=== PATIENT | male | born 1965 | race Caucasian/White ===

== ENCOUNTER 2018-12-10 15:43 | Inpatient (IN) | payer OTHER ==
[~2018-12-10] VITALS: Ht 185.4 cm; Wt 103.4 kg
[2018-12-10 15:47] VITALS: BP_SYST 148
--- NOTE | 2018-12-10 15:53 | NUR ---
Patient to ER bed 4 to gown for evaluation. Side rails up. Report given to YARI Ramos.
--- NOTE | 2018-12-10 16:05 | NUR ---
Patient came in to ED with left toe (4th digit) infection. Toe is red, broken skin and swollen. Patient cut toe nails and stated "must have cut toe nail too far." Patient did not seek treatment for toe. Patient states work boots might be too tight. patient also c/o calf pain. Will continue to monitor.
[2018-12-10] MEDS ORDERED: PIPERACILLIN/TAZO 3.375 GM in NS 50 ML IV ONE (16:15)
[2018-12-10] MEDS ORDERED: NACL 0.9% 1,000 ML IV ONE (16:15)
[2018-12-10] MEDS ORDERED: VANCOMYCIN HCL 1,000 MG in NS 250 ML IV ONE (16:15)
[2018-12-10] MEDS ORDERED: VANCOMYCIN HCL 1000 MG/VIAL IV ONE ×2 (16:40→22:27)
[2018-12-10] MEDS ORDERED: PIPERACILLIN/TAZOBACTAM 3.375 GM/VIAL (ZOSYN) IV ONE ×2 (16:40→22:28)
[2018-12-10 16:54] LABS: BASOPHILS % (AUTO) 0.3 % (0.0-2.0); EOSINOPHILS % (AUTO) 0.2 % (0.0-4.0); HEMATOCRIT 37.2 % (36-54); HEMOGLOBIN 12.8 g/dL (14.0-18.0); LYMPHOCYTES % (AUTO) 8.4 % (20.5-51.5); MEAN CORPUSCULAR HEMOGLOBIN 29 pg (27-31); MEAN CORPUSCULAR HGB CONC 34 % (32-36); MEAN CORPUSCULAR VOLUME 84 fL (79.0-98.0); MONOCYTES # (AUTO) 0.8 K/uL (0.0-1.0); MONOCYTES % (AUTO) 6.8 % (1.7-9.3); NEUTROPHILS # (AUTO) 10.4 K/uL (1.8-7.7); NEUTROPHILS % (AUTO) 84.3 % (40.0-70.0); PLATELET COUNT (AUTO) 221 K/uL (130-430); RED BLOOD CELL COUNT(AUTO) 4.42 MIL/uL (4.2-6.2); RED CELL DISTRIBUTION WIDTH 13.9 % (9.0-15.0); WHITE BLOOD COUNT (AUTO) 12.3 K/uL (4.8-10.8)
[2018-12-10 16:59] LABS: INR 1.1 (0.80-1.20); PROTHROMBIN TIME 10.7 SECS (9.5-12.5)
[2018-12-10 17:01] LABS: ALBUMIN 3.1 g/dL (3.4-4.8); CREATININE 1.03 mg/dL (0.55-1.30); POTASSIUM 3.8 mmol/L (3.5-5.1); TOTAL BILIRUBIN 0.5 mg/dL (0.0-1.0)
[2018-12-10 17:36] LABS: C-REACTIVE PROTEIN QUANT 15.9 mg/dL (0-0.5)
[2018-12-10] MEDS ORDERED: CHOL500013 PO (18:01)
[2018-12-10] MEDS ORDERED: GLU500 PO (18:01)
[2018-12-10] MEDS ORDERED: IRON-14 PO (18:01)
[2018-12-10] MEDS ORDERED: VITA1CAP PO (18:01)
[2018-12-10] MEDS ORDERED: EMPA10TA PO (18:01)
--- NOTE | 2018-12-10 18:01 | NUR ---
Medication reconciliation completed with information provided by patient. Any prior medication reconciliation on file was reviewed and corrected.
--- NOTE | 2018-12-10 18:23 | NUR ---
Patient will be admitted to care of Dr. Saldana. Admitted to medsurg unit. Room to be assigned by YARI Clement. Belongings list completed. Summary report printed. Report will be given at bedside.
[2018-12-10 18:53] LABS: ERYTHROCYTE SEDIMENTATION RATE 79 MM/HR (0-15)
--- NOTE | 2018-12-10 19:41 | NUR ---
Patient will be admitted to care of Dr. Saldana. Admitted to med/surg unit. Will go to room 122A. Belongings list completed. Summary report printed. Report will be given at bedside.
--- NOTE | 2018-12-10 19:42 | NUR ---
patient stable, report called and given to YARI Jackson. All questions answered.
[2018-12-10 19:44] LABS: BILIRUBIN,URINE NEGATIVE (NEGATIVE); BLOOD, URINE NEGATIVE (NEGATIVE); CLARITY/URINE CLEAR (CLEAR); COLOR,URINE YELLOW (YELLOW); GLUCOSE,URINE 3+ (NEGATIVE); KETONES,URINE 2+ (NEGATIVE); LEUKOCYTE ESTERASE ,URINE NEGATIVE (NEGATIVE); NITRITE, URINE NEGATIVE (NEGATIVE); PH,URINE 5.5 (5.0-8.0); PROTEIN URINE TRACE (NEGATIVE)
[2018-12-10] MEDS ORDERED: ONDANSETRON HCL 4 MG/2 ML VIAL IVP PRN (19:45)
[2018-12-10] MEDS ORDERED: ACETAMINOPHEN 325 MG TABLET PO PRN (19:45)
[2018-12-10] MEDS ORDERED: DEXTROSE 50% JECT 50 ML DISP.SYRIN IVP PRN (19:45)
[2018-12-10 19:52] LABS: RBC,URINE 0-3 /HPF (0-3); WBC,URINE 0-3 /HPF (0-3)
[2018-12-10 19:53] LABS: BACTERIA,URINE FEW /HPF (None Seen); MUCUS,URINE None Seen /LPF (None Seen)
[2018-12-10 19:56] VITALS: BP_SYST 122
--- NOTE | 2018-12-10 19:56 | NUR ---
ADMIT NOTE Received pt from ER to the floor with a diagnosis of INFECTED DIABETIC FOOT. Admission process initiated. patient oriented to pain management, safety and call light-teach back done.
--- NOTE | 2018-12-10 20:00 | NUR ---
INITIAL NOTES/DR. ARBOLEDA ROUND AT INITIAL ASSESSMENT, PATIENT IS TALKING WITH HIS SISTER AND DOCTOR NKECHI IS AT BED SIDE AT THIS TIME. NO SIGNS OR SYMPTOMS OF DISTRESS NOTED. PATIENT IS STABLE AND VERBALIZES NO PAIN. PLAN OF CARE WAS DISCUSSED WITH PATIENT AND FAMILY. PATIENT DEMONSTRATES CORRECT USAGE OF CALL LIGHT AT THIS TIME. BED IS LOCKED, ALARMED, AND AT LOWEST POSITION. FALL AND SAFETY PRECAUTION IS IN PLACE AND WILL CONTINUE THROUGHOUT THE SHIFT. WILL CONTINUE TO MONITOR.
[2018-12-10 20:34] LABS: PHOSPHORUS 3.3 mg/dL (2.7-4.5)
[2018-12-10 20:50] LABS: CALCIUM 8.2 mg/dL (8.4-11.0)
[2018-12-10] MEDS: HEPARIN SODIUM,PORCINE 5000 UNITS/ML VIAL SUBCUT SCH (21:00)
[2018-12-10] MEDS: DOCUSATE SODIUM 100 MG CAPSULE PO SCH (21:07)
[2018-12-10 21:08] LABS: THYROID STIMULATING HORMONE 0.65 uIu/mL (0.34-4.82)
[2018-12-10] MEDS: NACL 0.9% 1,000 ML IV SCH (21:08)
[2018-12-10] MEDS: INSULIN REGULAR, HUMAN 100 UNITS/ML, 10 ML VIAL (humuLIN R) SUBCUT PRN (21:17)
[2018-12-10] MEDS ORDERED: MORPHINE 2 MG/ML INJ. SYRINGE IVP PRN (22:00)
--- NOTE | 2018-12-10 22:00 | NUR ---
ROUNDING PATIENT IS LOOKING AT HIS PHONE. NO SIGNS OR SYMPTOMS OF RESPIRATORY DISTRESS. CALL LIGHT IS WITHIN REACH. BED IS LOCKED, ALARMED, AND AT THE LOWEST LEVEL. WILL CONTINUE TO MONITOR.
[2018-12-10] MEDS: PIPERACILLIN/TAZO 3.375 GM in NS 50 ML IV SCH (23:01)
[2018-12-11] MEDS ORDERED: PIPERACILLIN/TAZO 3.375/DEX-IS 50 ML IV SCH
--- NOTE | 2018-12-11 | NUR ---
ROUNDING PATIENT IS RESTING. PATIENT IS STABLE AND SHOWS NO SIGNS OR SYMPTOMS OF RESPIRATORY DISTRESS. CALL LIGHT IS WITHIN REACH. BED IS LOCKED, ALARMED, AND AT THE LOWEST LEVEL. WILL CONTINUE MONITOR.
--- NOTE | 2018-12-11 | NUR ---
NPO STATUS PATIENT IS NOW ON NPO STATUS. PATIENT IS AWARE OF NPO STATUS AND VERBALIZES UNDERSTANDING. NPO CONE PLACED AT BEDSIDE FOR REMINDER.
--- NOTE | 2018-12-11 02:00 | NUR ---
IV INSERTION PATIENT IV IS NOTED TO BE INFILTRATED. IV IS D/C, TIP INTACT, NO SIGNS OF ACTIVE BLEED. NEW IV IS PLACED ON RIGHT FOREARM #22 GAUGE, 10ML NS FLUSHED WITH NO RESISTANCE. PATIENT TOLERATED WELL. IV FLUIDS CONNECTED AT THIS TIME PER MD ORDER. PATIENT IS RESTING IN BED AND STABLE. NO SIGNS OR SYMPTOMS OF RESPIRATORY DISTRESS. CALL LIGHT IS WITHIN REACH. BED IS LOCKED, ALARMED, AND AT THE LOWEST LEVEL. WILL CONTINUE TO MONITOR.
--- NOTE | 2018-12-11 04:00 | NUR ---
ROUNDING PATIENT IS SLEEPING. NO SIGNS OR SYMPTOMS OF DISTRESS NOTED. CALL LIGHT IS WITHIN REACH. BED IS LOCKED, ALARMED, AND AT THE LOWEST LEVEL. WILL CONTINUE TO MONITOR.
[2018-12-11] MEDS ORDERED: VANCOMYCIN HCL 1 GM/NS PREMIX 250 ML IV SCH (05:00)
[2018-12-11] MEDS: PIPERACILLIN/TAZO 3.375 GM in NS 50 ML IV SCH ×3 (05:16→17:55)
[2018-12-11 05:21] LABS: BILIRUBIN,URINE NEGATIVE (NEGATIVE); BLOOD, URINE NEGATIVE (NEGATIVE); CLARITY/URINE CLEAR (CLEAR); COLOR,URINE YELLOW (YELLOW); GLUCOSE,URINE 3+ (NEGATIVE); KETONES,URINE 1+ (NEGATIVE); LEUKOCYTE ESTERASE ,URINE NEGATIVE (NEGATIVE); NITRITE, URINE NEGATIVE (NEGATIVE); PH,URINE 5.5 (5.0-8.0); PROTEIN URINE TRACE (NEGATIVE)
[2018-12-11 05:24] LABS: BACTERIA,URINE FEW /HPF (None Seen); RBC,URINE 0-3 /HPF (0-3); WBC,URINE 0-3 /HPF (0-3)
--- NOTE | 2018-12-11 05:28 | NUR ---
CONSULTATION PAGED REASON FOR CONSULTATION: R/O OSTEOMYELITIS WAS CONSULT CALLED? YES PERSON WHO WAS NOTIFIED: LOREN CONSULTING PHYSICIAN: DR. GÓMEZ TUB TENDER SPECIALTY: ORTHO TUB TENDER PHONE NUMBER: [phone] ORDERING PHYSICIAN: DR. ARBOLEDA Addendum: 12/11/18 at 0547 by Linda Martinez [place]/ CONSULT WAS ENTERED FOR DR. DALIA LITTLE DATA ARCHITECT MANAGER FOR DR. GÓMEZ TUB TENDER PHONE NUMBER: [phone]
[2018-12-11 05:41] LABS: BARBITURATE, URINE NEGATIVE (NEG <=200); BENZODIAZEPINE, URINE NEGATIVE (NEG <=150); CANNABINOID, URINE NEGATIVE (NEG <=50); COCAINE, URINE NEGATIVE (NEG <=150); METHAMPHETAMINES SCREEN,URINE NEGATIVE (NEG <=500); OPIATE, URINE NEGATIVE (NEG <=100); PHENCYCLIDINE SCREEN,URINE NEGATIVE (NEG <=25); UR TRICYCLIC ANTIDEPRESSANTS NEGATIVE (NEG <=300); URINE AMPHETAMINE NEGATIVE (NEG <=500); URINE METHADONE NEGATIVE (NEG <=200); URINE OXYCODONE SCREEN NEGATIVE (NEG <=100); URINE PROPOXYPHENE SCREEN NEGATIVE (NEG <=300)
--- NOTE | 2018-12-11 06:00 | NUR ---
CLOSING NOTES PATIENT HAS BEEN NPO FROM MIDNIGHT. BLOOD SUGAR CHECK WAS DONE AT THIS TIME AND IS WNL. AT THIS TIME, PT IS RESTING IN BED AND IS STABLE. NO SIGNS OR SYMPTOMS OF RESPIRATORY DISTRESS. CALL LIGHT IS WITHIN REACH. BED IS LOCKED, ALARMED, AND AT THE LOWEST LEVEL. FALL AND SAFETY PRECAUTIONS HAVE BEEN IN PLACE THROUGHOUT THE SHIFT. WILL CONTINUE TO MONITOR UNTIL BEDSIDE REPORT IS GIVEN TO AM NURSE.
[2018-12-11] MEDS: HYDROcodone/ACETAMIN 5-325 MG TAB (NORCO/ VICODIN) PO PRN ×2 (06:14→21:28)
[2018-12-11] MEDS: metFORMIN HCL 500 MG TABLET PO SCH ×3 (08:00→17:55)
--- NOTE | 2018-12-11 08:00 | NUR ---
PATIENT IS SLEEPING, AROUSABLE A/OX4. POC IS REVIEWED. CALL LIGHT IN PLACE, BED LOCKED AT THE LOWEST POSITION, WILL CONTINUE TO MONITOR.
[2018-12-11 08:10] LABS: BASOPHILS # (AUTO) 0.1 K/uL (0.0-0.2); BASOPHILS % (AUTO) 0.6 % (0.0-2.0); EOSINOPHILS # (AUTO) 0.1 K/uL (0.0-0.4); EOSINOPHILS % (AUTO) 1.1 % (0.0-4.0); HEMATOCRIT 33.7 % (36-54); HEMOGLOBIN 11.5 g/dL (14.0-18.0); LYMPHOCYTES # (AUTO) 1.4 K/uL (1.0-5.5); LYMPHOCYTES % (AUTO) 16.7 % (20.5-51.5); MEAN CORPUSCULAR HEMOGLOBIN 29 pg (27-31); MEAN CORPUSCULAR HGB CONC 34 % (32-36); MEAN CORPUSCULAR VOLUME 84 fL (79.0-98.0); MONOCYTES # (AUTO) 0.7 K/uL (0.0-1.0); MONOCYTES % (AUTO) 8.5 % (1.7-9.3); NEUTROPHILS # (AUTO) 6.3 K/uL (1.8-7.7); NEUTROPHILS % (AUTO) 73.1 % (40.0-70.0); PLATELET COUNT (AUTO) 197 K/uL (130-430)
[2018-12-11 08:20] LABS: WHITE BLOOD COUNT (AUTO) 8.6 K/uL (4.8-10.8)
[2018-12-11 08:33] LABS: CREATININE 0.97 mg/dL (0.55-1.30); POTASSIUM 3.8 mmol/L (3.5-5.1)
[2018-12-11] MEDS: HEPARIN SODIUM,PORCINE 5000 UNITS/ML VIAL SUBCUT SCH ×2 (09:00→20:24)
[2018-12-11] MEDS: DOCUSATE SODIUM 100 MG CAPSULE PO SCH ×3 (09:00→20:23)
--- NOTE | 2018-12-11 09:08 | NUR ---
DR. LITTLE IS AT BEDSIDE. POC IS EXPLAINED TO PATIENT
[2018-12-11 09:17] LABS: CALCIUM 8.5 mg/dL (8.4-11.0)
--- NOTE | 2018-12-11 10:33 | NUR ---
Nutrition Update Joaquin Scale 18 noted. Pt admitted for infected DM foot ulcer. Diet: [facility] BMI: 30.1 kg/m2 RD to follow per nutrition care standards.
--- NOTE | 2018-12-11 11:30 | NUR ---
BLOOD SUGAR 93. NO COVERAGE NEEDED.
[2018-12-11 12:30] VITALS: BP_SYST 151
--- NOTE | 2018-12-11 13:58 | NUR ---
PATIENT IS RECEIVING ULTRASOUND AT THE MOMENT.
[2018-12-11] MEDS: VANCOMYCIN HCL 1,500 MG in NS 250 ML IV SCH (14:13)
[2018-12-11] MEDS: NACL 0.9% 1,000 ML IV SCH (14:13)
--- NOTE | 2018-12-11 15:19 | NUR ---
patient is resting, with family at bedside.
[2018-12-11 16:30] VITALS: BP_SYST 142
--- NOTE | 2018-12-11 17:08 | NUR ---
BLOOD SUGAR 96. NO COVERAGE NEEDED.
--- NOTE | 2018-12-11 18:13 | NUR ---
PATIENT IS EATING DINNER AT THIS TIME. NO SIGNS OF DISTRESS NOTED.
--- NOTE | 2018-12-11 19:45 | NUR ---
INITIAL NOTES AT INITIAL ASSESSMENT, PATIENT IS AWAKE AND WATCHING TV. NO SIGNS OR SYMPTOMS OF DISTRESS NOTED. PATIENT IS STABLE AND VERBALIZES NO PAIN. PLAN OF CARE WAS DISCUSSED WITH PATIENT AND FAMILY. PATIENT DEMONSTRATES CORRECT USAGE OF CALL LIGHT AT THIS TIME. BED IS LOCKED, ALARMED, AND AT LOWEST POSITION. FALL AND SAFETY PRECAUTION IS IN PLACE AND WILL CONTINUE THROUGHOUT THE SHIFT. WILL CONTINUE TO MONITOR.
[2018-12-11 20:00] VITALS: BP_SYST 137
--- NOTE | 2018-12-11 21:45 | NUR ---
WOUND CARE WOUND CARE PERFORMED AT THIS TIME. PATIENT PREMEDICATED FOR WOUND CARE. PATIENT TOLERATED WELL AND REPOSITION FOR COMFORT. PATIENT IS RESTING IN BED AND STABLE. NO SIGNS OR SYMPTOMS OF DISTRESS. CALL LIGHT IS WITHIN REACH. BED IS LOCKED, ALARMED, AND AT THE LOWEST LEVEL. WILL CONTINUE TO MONITOR.
[2018-12-12 00:05] VITALS: BP_SYST 127
[2018-12-12] MEDS: PIPERACILLIN/TAZO 3.375 GM in NS 50 ML IV SCH ×5 (00:29→23:52)
[2018-12-12] MEDS: VANCOMYCIN HCL 1,500 MG in NS 250 ML IV SCH ×2 (05:34→15:12)
[2018-12-12] MEDS: NACL 0.9% 1,000 ML IV SCH ×2 (05:34→22:01)
[2018-12-12 06:10] LABS: CREATININE 1.12 mg/dL (0.55-1.30); POTASSIUM 4.3 mmol/L (3.5-5.1)
--- NOTE | 2018-12-12 06:25 | NUR ---
CLOSING NOTES PATIENT WAS COOPERATIVE THROUGHOUT THE SHIFT. BLOOD SUGAR CHECK WNL. PATIENT IS CURRENTLY SLEEPING IN BED AND IS STABLE. NO SIGNS OR SYMPTOMS OF RESPIRATORY DISTRESS. CALL LIGHT IS WITHIN REACH. BED IS LOCKED, ALARMED, AND AT THE LOWEST LEVEL. FALL AND SAFETY PRECAUTIONS HAVE BEEN IN PLACE THROUGHOUT THE SHIFT. WILL CONTINUE TO MONITOR UNTIL BEDSIDE REPORT IS GIVEN TO AM NURSE.
[2018-12-12 06:28] LABS: BASOPHILS % (AUTO) 0.7 % (0.0-2.0); EOSINOPHILS # (AUTO) 0.2 K/uL (0.0-0.4); EOSINOPHILS % (AUTO) 2.9 % (0.0-4.0); HEMATOCRIT 34.7 % (36-54); HEMOGLOBIN 11.7 g/dL (14.0-18.0); LYMPHOCYTES # (AUTO) 1.6 K/uL (1.0-5.5); MEAN CORPUSCULAR HEMOGLOBIN 29 pg (27-31); MEAN CORPUSCULAR HGB CONC 34 % (32-36); MEAN CORPUSCULAR VOLUME 85 fL (79.0-98.0); MONOCYTES # (AUTO) 0.8 K/uL (0.0-1.0); MONOCYTES % (AUTO) 10.1 % (1.7-9.3); NEUTROPHILS # (AUTO) 4.9 K/uL (1.8-7.7); NEUTROPHILS % (AUTO) 65.3 % (40.0-70.0); PLATELET COUNT (AUTO) 215 K/uL (130-430); RED BLOOD CELL COUNT(AUTO) 4.07 MIL/uL (4.2-6.2); RED CELL DISTRIBUTION WIDTH 13.7 % (9.0-15.0); WHITE BLOOD COUNT (AUTO) 7.5 K/uL (4.8-10.8)
[2018-12-12 06:31] LABS: CALCIUM 8.8 mg/dL (8.4-11.0)
--- NOTE | 2018-12-12 07:30 | NUR ---
OPENING NOTE RECEIVED PATIENT IN BED. ALERT AND ORIENTED. DENIES PAIN AT THIS TIME. ROOM AIR. NO ACUTE DISTRESS. NO SOB. RESPIRATION EVEN AND UNLABORED. SKIN WARM AND DRY TO TOUCH. IV INTACT AND PATENT; HECTOR IVF. ASSISTED PATIENT TO BATHROOM; STEADY GAIT NOTED. SEEN AND EXAMINED BY AT BEDSIDE; DISCUSSED PLAN OF CARE AND PATIENT VERBALIZED UNDERSTANDING. BED IN LOW AND LOCKED POSITION. SIDERAIL UPX 2. ALL NEEDS MET. CALL LIGHT IN REACH. CONT TO MONITOR.
[2018-12-12 08:04] VITALS: BP_SYST 125
--- NOTE | 2018-12-12 08:24 | NUR ---
CONSULTATION PAGED REASON FOR CONSULTATION:LEFT FOOT POSS OSTEOMYELITIS WAS CONSULT CALLED?Y PERSON WHO WAS NOTIFIED:ROSETTA CONSULTING PHYSICIAN:TEJA KEARNS BUSINESS DEVELOPMENT MANAGER SPECIALTY:INFECTIIOUS DISEASE BUSINESS DEVELOPMENT MANAGER PHONE NUMBER:[phone] REQUESTING PHYSICIAN:TABITHA BARTH
[2018-12-12] MEDS: DOCUSATE SODIUM 100 MG CAPSULE PO SCH ×2 (08:28→21:50)
[2018-12-12] MEDS: metFORMIN HCL 500 MG TABLET PO SCH ×2 (08:29→17:27)
[2018-12-12] MEDS: HEPARIN SODIUM,PORCINE 5000 UNITS/ML VIAL SUBCUT SCH ×3 (08:29→21:00)
--- NOTE | 2018-12-12 08:33 | NUR ---
meds DUE MEDS ADMINISTERED, HECTOR WELL. PATIENT REFUSED HEPARIN DUE TO "FATHER WAS ON IT AND HE WOULD BLEED"; RISK/BENEFITS EXPLAINED AND PATIENT CONT TO REFUSE. WILL NOTIFY MD. VÁZQUEZ TO MONITOR
--- NOTE | 2018-12-12 11:32 | NUR ---
SEEN AND EXAMINED BY AT BEDSIDE WOUND CARE PROVIDED, HECTOR WELL. DENIES ANY PAIN. PICTURES OF WOUND TAKEN.
--- NOTE | 2018-12-12 11:56 | NUR ---
BLOOD GLUCOSE 152 mg/dL AT THIS TIME. PATIENT REFUSED INSULIN COVERAGE STATING HE DOESNT NEED IT. TEACHING DONE ON DM AND RISKS EXPLAINED. PT CONT TO REFUSE.
[2018-12-12 12:13] VITALS: BP_SYST 137
--- NOTE | 2018-12-12 12:16 | NUR ---
PATIENT TAKEN TO MRI VIA WHEELCHAIR. PATIENT STABLE.
--- NOTE | 2018-12-12 13:36 | NUR ---
PATIENT ON UNIT FROM MRI; STABLE. SITTING UP EATING LUNCH.
[2018-12-12] MEDS: FLUCONAZOLE 200 mg/ NS 100 ML IV SCH (13:56)
--- NOTE | 2018-12-12 15:21 | NUR ---
NOTE PATIENT STABLE. HECTOR IV ATB ORDERED. NO S/SX ASE NOTED. SITTING UP IN BED TALKING TO MOTHER AND SISTERS. ALL NEEDS MET. CONT TO MONITOR
[2018-12-12 16:03] VITALS: BP_SYST 126
--- NOTE | 2018-12-12 17:40 | NUR ---
BLOOD GLUCOSE 142 mg/dL. NO INSULIN COVERAGE NEEDED. CONT TO MONITOR.
--- NOTE | 2018-12-12 19:00 | NUR ---
CLOSING NOTE PATIENT STABLE. SITTING UP TALKING TO FAMILY. DENIES PAIN. NO ACUTE DISTRESS. NO SOB. RESPIRATION EVEN AND UNLABORED. SKIN WARM AND DRY TO TOUCH. IV INTACT AND PATENT; HECTOR IVF. BED IN LOW AND LOCKED POSITION. SIDERAIL UPX2. ALL NEEDS MET. CALL LIGHT IN REACH. CONT TO MONITOR
--- NOTE | 2018-12-12 19:20 | NUR ---
initial notes: pt is in bed,awake, alert,oriented x 4.talking to his family at bedside. no pain, no distress. ivf is infusing well to right arm . no infiltration. pt has wound to his left 4th toe- dry drainage seen on the dressing, reinforce dressing. no skin breakdown at the back. vital sign check and recorded. pt is ambulatory with steady gait. side rails up. low bed position. will follow-up..
[2018-12-12 19:56] VITALS: BP_SYST 128
[2018-12-12] MEDS: INSULIN REGULAR, HUMAN 100 UNITS/ML, 10 ML VIAL (humuLIN R) SUBCUT PRN (21:53)
--- NOTE | 2018-12-12 22:05 | NUR ---
awake, watching tv. no pain. stable. needs attended. will recheck.
--- NOTE | 2018-12-13 | NUR ---
sleeping on his side. stable. non labored breathing, call light in reach. will recheck pt.
--- NOTE | 2018-12-13 02:00 | NUR ---
sleeping,comfortable, stable. non labored breathing. not distress. will recheck pt.
[2018-12-13] MEDS: VANCOMYCIN HCL 1,500 MG in NS 250 ML IV SCH ×2 (02:46→13:52)
--- NOTE | 2018-12-13 04:00 | NUR ---
sleeping,comfortable on his side, stable. non labored breathing. not distress. ivf infusing well. will recheck pt.
[2018-12-13] MEDS: PIPERACILLIN/TAZO 3.375 GM in NS 50 ML IV SCH ×2 (05:53→11:20)
--- NOTE | 2018-12-13 06:12 | NUR ---
sleeping,comfortable, stable. non labored breathing. not distress. iv antibiotic given. will blood sugar.
--- NOTE | 2018-12-13 07:20 | NUR ---
closing: pt is awake, alert, no pain. stable. ivf infusing well. ambulatory with steady gait. needs attended the whole shift. beside report given to am rn.
--- NOTE | 2018-12-13 07:25 | NUR ---
Initial notes: Patient awake, alert and oriented. Stable. I.V. access patent. Discussed plan of care. Call light within reach. Report received at bedside.
[2018-12-13 08:07] VITALS: BP_SYST 130
--- NOTE | 2018-12-13 08:24 | NUR ---
Corey rounds: Seen by Dr. Flannery. Talked to the patient. Changed the toe dressing.
[2018-12-13] MEDS: DOCUSATE SODIUM 100 MG CAPSULE PO SCH ×2 (08:50→21:20)
[2018-12-13] MEDS: metFORMIN HCL 500 MG TABLET PO SCH ×2 (08:50→17:03)
[2018-12-13] MEDS: HEPARIN SODIUM,PORCINE 5000 UNITS/ML VIAL SUBCUT SCH ×2 (08:50→21:22)
[2018-12-13 11:42] VITALS: BP_SYST 126
--- NOTE | 2018-12-13 11:45 | NUR ---
Wound Evaluation: Late note for 1145 secondary to patient care. Wound evaluation attempted, but dressing was changed by Dr. Flannery this morning. Dressing not removed for assessment secondary to doing so would decrease wound temperature and retard wound healing rate. Will follow up on orders.
[2018-12-13] MEDS: FLUCONAZOLE 200 mg/ NS 100 ML IV SCH (12:24)
[2018-12-13 12:46] VITALS: BP_SYST 129
--- NOTE | 2018-12-13 13:34 | NUR ---
rounds: Patient resting on bed. no distress noted.
--- NOTE | 2018-12-13 15:17 | NUR ---
rounds: Patient on bed resting. no distress noted.
--- NOTE | 2018-12-13 16:04 | NUR ---
Dietitian Recommendations * Recommend [facility] high carb-75 gm diet with Dorian BID. (provides additional 180 kcal and 5 gm of protein/day) * Recommend snacks TID. RADHA, RD Please refer to Nutrition Assessment for details. Signed: 12/13/18 at 1605 by Liz ROMO <Co-Signature Required> Co-Signed: 12/13/18 at [address] Addendum: 12/13/18 at 1605 by Liz ROMO Amended: Links added.
[2018-12-13 16:07] VITALS: BP_SYST 138
--- NOTE | 2018-12-13 18:44 | NUR ---
Closing notes: Patient resting on bed. Stable. Needs attended. Call light within reach. Safety measures in placed. Report will be given to material handler 2nd shift.
[2018-12-13 20:00] VITALS: BP_SYST 140
[2018-12-13] MEDS: ceFAZolin SODIUM 1 GM in D5W 50 ML IV SCH (21:24)
[2018-12-13] MEDS: INSULIN REGULAR, HUMAN 100 UNITS/ML, 10 ML VIAL (humuLIN R) SUBCUT PRN (21:26)
[2018-12-13] MEDS: NACL 0.9% 1,000 ML IV SCH (23:44)
[2018-12-14 04:00] VITALS: BP_SYST 155
--- NOTE | 2018-12-14 04:49 | NUR ---
patient is askeep and vital signs not taken.prefers tp sleep.withr
[2018-12-14] MEDS: ceFAZolin SODIUM 1 GM in D5W 50 ML IV SCH ×3 (05:22→21:42)
[2018-12-14] MEDS: INSULIN REGULAR, HUMAN 100 UNITS/ML, 10 ML VIAL (humuLIN R) SUBCUT PRN (06:59)
--- NOTE | 2018-12-14 08:00 | NUR ---
ASSUMPTION OF CARE: RECEIVED PT A/A/OX4, DX: RISK FOR INEFFECTIVE THERAPEUTIC REGIMEN, R/T INFECTED DIABETIC FOOT ULCER. PT IS STABLE, AFEBRILE, NO C/O PAIN OR DISCOMFORT, LEFT FOOT ELEVATED ON PILLOW, DRSG IS CLEAN, DRY AND INTACT, VSS, ORIENTED TO UNIT, CALL LIGHT PLACED WITHIN REACH, IV SITE INTACT, PATENT, NO REDNESS OR SWELLING, RESTING IN POSITION OF COMFORT, NEEDS MET, WILL CONT' TO MONITOR AND ASSESS.
--- NOTE | 2018-12-14 08:15 | NUR ---
PAGED OAGED MAICO JUAREZ AT [phone] SPOKE WITH MEGHAN.
--- NOTE | 2018-12-14 08:15 | NUR ---
VISIT: AT BEDSIDE FOR ASSESSMENT OF PT, DISCUSSED JOANA GUTIERREZ TO LEFT SECOND TOE CHANGED, PT DENIES HAVING ANY PAIN, TOLERATING WELL, WILL CONT' TO MONITOR AND ASSESS. Addendum: 12/14/18 at 0839 by Effie Fragoso RN ERROR: LEFT FORTH TOE EXAMINED BY JOANA ESPINOSA CHANGED AT THIS TIME.
[2018-12-14] MEDS: HEPARIN SODIUM,PORCINE 5000 UNITS/ML VIAL SUBCUT SCH ×2 (09:00→21:00)
[2018-12-14 09:14] LABS: PROTHROMBIN TIME 10.4 SECS (9.5-12.5)
[2018-12-14] MEDS: DOCUSATE SODIUM 100 MG CAPSULE PO SCH ×2 (09:54→21:42)
[2018-12-14] MEDS: metFORMIN HCL 500 MG TABLET PO SCH ×2 (09:55→17:29)
--- NOTE | 2018-12-14 12:00 | NUR ---
GLUCOSE MONITORING: BLOOD SUGAR HAXFC=022, NO COVERAGE REQUIRED, WILL CONT' WITH POC.
--- NOTE | 2018-12-14 12:15 | NUR ---
PICC LINE INSERTION: IV PICC LINE BEING INSERTED BY PICC LINE NURSE USING STERILE TECHNIQUE, PICC LINE NURSE CLARITA RN AT BEDSIDE, PT TOLERATING WELL, WILL CONT' TO MONITOR AND ASSESS.
[2018-12-14] MEDS ORDERED: CEFA1FRO IV (12:18)
--- NOTE | 2018-12-14 12:20 | NUR ---
VISIT: AT BEDSIDE FOR ASSESSMENT OF PT, DISCUSSED WITH PT PLAN FOR HOME ADMINISTRATION OF IV ANTIBIOTIC, HOME HEALTH TO BE ARRANGED BY CM, PT VERBALIZES UNDERSTANDING, NEW ORDERS GIVEN, WILL CONT' TO MONITOR AND ASSESS.
--- NOTE | 2018-12-14 12:40 | NUR ---
PICC LINE: PICC LINE \INSERTED, CHEST X-RAY TAKEN AT BEDSIDE, VERIED FOR USE, WILL CONT' WITH POC.
[2018-12-14 13:03] VITALS: BP_SYST 138
--- NOTE | 2018-12-14 13:54 | NUR ---
DC PLANNING: [facility] SPOKE WITH HALIE REGARDING OUTPATIENT WOUND CARE SETUP. PER HALIE, THEIR MD WILL HAVE TO REVIEW THE CHART BEFORE SETTING UP APPOINTMENT. THEY WILL BE CONTACTING PATIENT FOR THE APPOINTMENT SCHEDULE. CM FAXED CLINICAL PACKET TO F P . CM ALSO NOTED ON THE FAX IT IS URGENT AND PATIENT WILL BE DISCHARGING TODAY. CM TO FOLLOW UP NEEDED. Addendum: 12/14/18 at 1612 by Alina Fish RN CM [facility] However, was not available. CM to follow up as needed.
[2018-12-14] MEDS: FLUCONAZOLE 200 mg/ NS 100 ML IV SCH (14:30)
--- NOTE | 2018-12-14 14:30 | NUR ---
Discharge Planning: DCP faxed pt referral to [facility] ([phone] p [phone]) home health with IV medication for 6 weeks, DCP faxed pt referral to [facility] p [phone]) for IV medication, DCP spoke Gale.
[2018-12-14 16:09] VITALS: BP_SYST 131
--- NOTE | 2018-12-14 17:00 | NUR ---
GLUCOSE MONITORING: BLOOD SUGAR PPMXA=103, NO COVERAGE REQUIRED, WILL CONT' WITH POC.
[2018-12-14 19:00] VITALS: BP_SYST 149
--- NOTE | 2018-12-14 19:15 | NUR ---
change of shift.pt.presents quiescent affect.ambulating w/in the room/.pt.presents wound;location lt.foot. dsg/sock i place.no drainage.pt.presents iv access;location;rt.forearm.pt.presents picc line;placement;12/14/18. general status stable.respiratory status stable call light/telephone w/in reach of the pt.
[2018-12-14 20:00] VITALS: BP_SYST 149
--- NOTE | 2018-12-14 20:00 | NUR ---
pt.assessed.v/s assessed:values w/in normal limits.pt.presents quiescent affect;calm,viewing tv programming: family visiting. no c/o pain,nausea.i have apprised the pt. that i may provide snacks/beverages w/in the shift.no requests posited@this hour.the lt.foot presents wound;sock;dsg intact.pt,capable to reposition self.chalino light/telephone w/in reach of the pt.
--- NOTE | 2018-12-14 20:30 | NUR ---
i have assessed the blood glucose;value;148mg/dl.i have apprised the pt.of the value and that insulin per the sliding scale parameters will not require administration.
--- NOTE | 2018-12-14 21:00 | NUR ---
2100p medications administered.pt.had refused the administration of the heparin;5ku.i provided the indication of the medication. pt.had requested snacks/beverages.i have provided the snacks/apple juice. Addendum: 12/15/18 at 0202 by Huey Vilchis RN i have placed the nsg/pt.alert sign@hob;re;rt.bicept picc line.
[2018-12-14] MEDS: NACL 0.9% 1,000 ML IV SCH ×2 (21:42→23:45)
--- NOTE | 2018-12-14 22:00 | NUR ---
pt assessed.pt.presents quiescent affect;calm,somnolent,iv access intact;patent.iv fluids infusing.no c/o pain,nausea. general status stable.respiratory status stable;unlabored.pt.capable to reposition self.chalino light/ telephone w/in reach of the pt.
--- NOTE | 2018-12-15 | NUR ---
pt.assessed.v/s assessed;values w/in normal limits.no c/o pain,nausea.iv fluids access intact;patent. general status stable.respiratory status stable.unlabored.pt.capable to reposition self.call light/telephone w/in reach of the pt.
[2018-12-15 00:22] VITALS: BP_SYST 136
--- NOTE | 2018-12-15 02:00 | NUR ---
pt.assessed pt.presents quiescent affect;calm,somnolent.iv access intact;patent iv fluids infusing.general status stable,respiratory status stable;unlabored.pt.capable to reposition self.call light/telephone w/in reach of the pt.
--- NOTE | 2018-12-15 04:00 | NUR ---
pt.assessed.pt.presents quiescent affect;calm,somnolent.iv access intact;patent iv fluids infusing.general status stable. respiratory status stable;unlabored.pt.capable to reposition self.call light/telephone w/in reach of the pt.
[2018-12-15] MEDS: ceFAZolin SODIUM 1 GM in D5W 50 ML IV SCH ×2 (05:39→14:07)
[2018-12-15] MEDS: INSULIN REGULAR, HUMAN 100 UNITS/ML, 10 ML VIAL (humuLIN R) SUBCUT PRN (06:06)
--- NOTE | 2018-12-15 06:14 | NUR ---
pt.assessed pt.presents quiescent affect.i have ass th blood glucose;value;186mg/dl.i have apprised the pt.of the value. have administered insulin;regular;2-units.no c/o pain,nausea.no requests posited @this hour.i have administered ancef:abx;ivpb;600a dose.pt.capable to reposition self.i have attended to the wound;lt.foot;4th metatarsal.i have change the non-adherent; dsg,change the ling wrap. i have provided socks clean pair.iv access intact;patent iv fluids infusing.call light/telephone w/in the reach of the pt.
[2018-12-15] MEDS ORDERED: L.RH1CAP PO (08:44)
[2018-12-15] MEDS: HEPARIN SODIUM,PORCINE 5000 UNITS/ML VIAL SUBCUT SCH (09:00)
--- NOTE | 2018-12-15 09:00 | NUR ---
PUBLIC RECORDS RESEARCHER: MORNING MEDS GIVEN, PER ORDERED BY Corey, TOLERATED WELL, WILL CONT' TO MONITOR AND ASSESS.
[2018-12-15] MEDS: metFORMIN HCL 500 MG TABLET PO SCH (09:48)
[2018-12-15] MEDS: DOCUSATE SODIUM 100 MG CAPSULE PO SCH (09:48)
--- NOTE | 2018-12-15 11:08 | NUR ---
DC planning--[phone]Per Tia at [facility], they accepted pt--I called [facility] [phone]--s/w Linda--she is pending authorization from [facility] and she will f/u again for auth-Linda s/w pt about $12 co-pay per visit--I confirmed w/pt he is agreeable for co-pay--If no auth for HH received, then it is $120 charge to pt--I s/w Chrissy at [facility] [phone]--she said Dr. Jaeger still has to review the records but set up appt for 2018 at 0730am Addendum: 12/15/18 at 1211 by Devika Montiel RN Gave appointment card for [facility] appointment for 2018 at 7:30am to pt--Linda at [facility] confirmed authorization to see pt at home with $12.00 co-pay--confirming start date for tomorrow am with Linda at [facility]--[facility] pt's home tonight around 8-9pm--SHELLY GREENBERG Addendum: 12/15/18 at 1215 by Devika Montiel RN Confirmed with Linda at [facility]--they will see pt at 0800 tomorrow and still need credit card information from patient for co-pay of $12.00 I will provide pt with contact # for [facility]--SHELLY GREENBERG
--- NOTE | 2018-12-15 11:30 | NUR ---
GLUCOSE MONITORING: BLOOD SUGAR TVGCF=068, NO COVERAGE REQUIRED, WILL CONT' WITH POC.
[2018-12-15 12:14] VITALS: BP_SYST 133
[2018-12-15] MEDS: FLUCONAZOLE 200 mg/ NS 100 ML IV SCH (12:56)
[2018-12-15] MEDS: HYDROcodone/ACETAMIN 5-325 MG TAB (NORCO/ VICODIN) PO PRN (12:57)
[2018-12-15 13:24] VITALS: BP_SYST 150
--- NOTE | 2018-12-15 14:00 | NUR ---
NURSES NOTES: PT HAS ORDER FOR DISCHARGE TO HOME WITH HOME HEALTH FOR CONTINUED ADMINISTRATION OF ANTIBIOTIC ANCEF 1 GM TID, PT AWARE, SPOKE WITH [facility], TODAY WHOM CLARIFIED ALL ARRANGEMENTS HAVE BEEN MET FOR MED ADMINISTRATION, WOUND CARE AND ORTHOPEDIC SHOE, PT VERBALIZES UNDERSTANDING, WILL CONT' WITH POC.
[2018-12-15 17:03] VITALS: BP_SYST 135
--- NOTE | 2018-12-16 11:35 | NUR ---
Requested from dr. Jaeger's [facility] at [facility]: CM faxed labs, and wound culture results attn to Chrissy fax# [phone], tel # [phone].
--- NOTE | 2018-12-22 15:15 | NUR ---
Discharge Follow Up Phone Call Phoned patient, . Patient stated he was doing well. He was at his follow up appointment with his PCP. He went to [facility] on 12/10/18, but they were unable to start treatment as the wound was still wet. He will follow up again on 12/27/18. He is taking all medications as directed. No questions or concerns.
== END 2018-12-15 17:20 | disposition home health service (06) | DRG 638 ==
LOC: SED 15:43 → SMU 18:20
PROVIDERS: ADMIT Student in an Organized Health Care Education/Training Program; ATTEND Student in an Organized Health Care Education/Training Program
PROC: 02HV33Z Insertion of Infusion Device into Superior Vena Cava, Percutaneous Approach (ICD-10-PCS; principal; 2018-12-14)
PROC: B548ZZA Ultrasonography of Superior Vena Cava, Guidance (ICD-10-PCS; 2018-12-14)
DX: E11.69 Type 2 diabetes mellitus with other specified complication (principal); M86.8X7 Other osteomyelitis, ankle and foot; E11.52 Type 2 diabetes mellitus with diabetic peripheral angiopathy with gangrene; E44.1 Mild protein-calorie malnutrition; E87.1 Hypo-osmolality and hyponatremia; E11.621 Type 2 diabetes mellitus with foot ulcer; L97.529 Non-pressure chronic ulcer of other part of left foot with unspecified severity; E11.65 Type 2 diabetes mellitus with hyperglycemia; E11.610 Type 2 diabetes mellitus with diabetic neuropathic arthropathy; E11.40 Type 2 diabetes mellitus with diabetic neuropathy, unspecified; B95.61 Methicillin susceptible Staphylococcus aureus infection as the cause of diseases classified elsewhere; Z79.84 Long term (current) use of oral hypoglycemic drugs; Z68.30 Body mass index [BMI] 30.0-30.9, adult
CPT/HCPCS: 36415; 71045; 73721; 80048; 80053; 80061; 80202-TC; 80307; 81000-TC; 82962; 83036; 83605; 83735-TC; 83880; 84100-TC; 84443-TC; 84484; 85025; 85610-TC; 85651-TC; 85730-TC; 86140; 87040-TC; 87070-TC; 87186-TC; 93923; 96365; 96366; 96367; 99285; C1751; J0690; J1450; J1644; J1815; J2543; J3370; J7030; J7050; J7060